=== PATIENT | male | born 1995 | race Caucasian/White ===

== ENCOUNTER 2019-02-24 01:52 | Emergency (ER) | payer SELFPAY ==
[~2019-02-24] VITALS: Ht 182.9 cm; Wt 81.6 kg
[~2019-02-24 01:52] MED LIST: ALBU17AE23 IH; ALBU17AE3 IH; ARPZ10T PO; FLT11013 IH; LORA10TA7 PO; PRD20T PO; RISP0.5T2 PO
--- OUTSIDE RECORDS SUMMARY | 2019-02-24 01:59 | XMS REPORT | CCD ---
Author HILDA Haskins Unknown Address [address] [facility] [address] [place], [place] [id number] Care Team Providers Care Associate Embalmer/Funeral Director Name Role Phone BETH GOZNALEZ MD Attphys BETH GONZALEZ MD Prisurg Vital Signs Unknown or Not Available. Allergies Allergy Code Allergy Type Reaction Status No Known Drug Allergies 0 No known drug allergies Active Procedures Unknown or Not Available. History of Immunizations Immunization Code Date MMR 02/19/1997 MMR 12/03/2000 Hep B, adolescent or pediatric 1995 Hep B, adolescent or pediatric 04/04/1996 Hep B, adolescent or pediatric 08 02/19/1997 IPV 10 04/04/1996 IPV 10 05/05/1996 IPV 10 02/19/1997 IPV 10 12/03/2000 influenza, split (incl. purified surface antigen) 15 07/09/2009 Hib, unspecified formulation 17 03/08/1996 DTaP 20 04/04/1996 DTaP 20 05/05/1996 DTaP 20 02/19/1997 DTaP 20 09/04/1997 DTaP 20 12/03/2000 varicella 21 09/04/1997 varicella 21 04/28/2007 varicella 21 04/26/2009 HPV, quadrivalent 62 09/28/2013 Hep A, ped/adol, 2 dose 83 04/28/2007 Hep A, ped/adol, 2 dose 83 05/11/2008 Hep A, ped/adol, 2 dose 83 04/26/2009 Hep A, ped/adol, 2 dose 83 11/26/2010 influenza, live, intranasal 111 07/11/2008 meningococcal MCV4P 114 05/11/2008 meningococcal MCV4P 114 10/12/2008 meningococcal MCV4P 114 04/26/2009 Tdap 115 05/11/2008 Tdap 115 04/26/2009 Tdap 115 11/26/2010 Influenza, seasonal, injectable, preservative free 140 07/25/2013 Problems Problem Code Start Date Resolved Date Status Lacerated tendon 834714433 04/02/2015 Active Results Unknown or Not Available. Active Medications Unknown or Not Available. Medications Administered During Visit Unknown or Not Available. Encounters Encounter Diagnosis Diagnosis Code Start Date Stimulant abuse [id number] 04/18/2016 Social History Smoking Status Code Start Date End Date Current some day smoker [id number] Patient Decision Aids Unknown or Not Available. Discharge Instructions You were admitted to [facility] on 04/18/2016 03:34 with a principal diagnosis of Other stimulant abuse, uncomplicated You were discharged from [facility] on 04/18/2016 04:01 Should you have any questions prior to discharge, please contact a member of your healthcare team. If you have left the hospital and have any questions, please contact your primary care physician. Chief Complaint and Reason For Visit Chief Complaint Date of Onset SWALLOWED DRUGS Function Status Description Code Date Type Status No Impairments [id number] 06/17/2015 Functional Active Referral/Transition of Care Unknown or Not Available.
--- OUTSIDE RECORDS SUMMARY | 2019-02-24 01:59 | XMS REPORT | CCD ---
Author HILDA Haskins Unknown Address [address] [facility] [address] [place], [place] [id number] Care Team Providers Care Motor Vehicle Assembler Name Role Phone BETH GONZALEZ MD Attphys BETH GONZALEZ MD Prisurg Vital [...] Start Date Resolved Date Status Lacerated tendon [id number] 04/02/2015 Active Results Unknown or Not Available. Active Medications Unknown or Not Available. Medications Administered During Visit Unknown or Not Available. Encounters Encounter Diagnosis Diagnosis Code Start Date Abrasion of hand 256658463 04/18/2016 Social History Smoking Status Code Start Date End Date Current some day smoker [id number] Patient Decision Aids Unknown or Not Available. Discharge Instructions You were admitted to [facility] on 04/18/2016 02:44 with a principal diagnosis of Abrasion of right hand, initial encounter You were discharged from [facility] on 04/18/2016 03:19 Should you have any questions prior to discharge, please contact a member of your healthcare team. If you have left the hospital and have any questions, please contact your primary care physician. Chief Complaint and Reason For Visit Chief Complaint Date of Onset WRIST PAIN Function Status Description Code Date Type Status No Impairments [id number] 06/17/2015 Functional Active Plan of Care Care Plan Entries Problem: Lacerated tendon [SNOMED: 428218650] Goal: Pain control management [SNOMED: 196573877] Instructions: take prn pain meds as needed, and prescribed by physician. Referral/Transition of Care Unknown or Not Available.
--- OUTSIDE RECORDS SUMMARY | 2019-02-24 01:59 | XMS REPORT | CCD ---
Author HILDA Haskins Unknown Address [address] [facility] [address] [place], [place] [id number] Care Team Providers Care Orthopedics Nurse Name Role Phone BETH GONZALEZ MD Attphys [...] Start Date Resolved Date Status Lacerated tendon 685071515 04/02/2015 Active Results Unknown or Not Available. Active Medications Unknown or Not Available. Medications Administered During Visit Unknown or Not Available. Encounters Encounter Diagnosis Diagnosis Code Start Date Stimulant abuse 601921112 04/18/2016 Social History Smoking Status Code Start Date End Date Current some day smoker [id number] Patient Decision Aids Unknown or Not Available. Discharge Instructions You were admitted to [facility] on 04/18/2016 03:34 with a principal diagnosis of Other stimulant abuse, uncomplicated You were discharged from [facility] on 04/18/2016 04:01 Should you have any questions prior to discharge, please contact a member of your healthcare team. If you have left the hospital and have any questions, please contact your primary care physician. Chief Complaint and Reason For Visit Chief Complaint Date of Onset SWALLOWED DRUGS Function Status Description Code Date Type Status No Impairments [id number] 06/17/2015 Functional Active Referral/Transition of Care Unknown or Not Available.
--- OUTSIDE RECORDS SUMMARY | 2019-02-24 01:59 | XMS REPORT ---
Author Author STEPHANY CARSON Organization [employer] Address Unknown Phone Unavailable Care Team Providers Care Biomechanical Engineer Name Role Phone STEPHANY CARSON CP Unavailable Allergies No Known Allergies Problems Problem Type Condition Code Onset Dates Condition Status Assessment Groin abscess L02.214 Active Assessment Rash R21 Active Assessment Rhinitis, allergic J30.9 Active Medications Medication Code System Code Instructions Start Date End Date Status Dosage Hydrocortisone [facility] [address]-79 1 % Externally Twice a day December 31, 2015 1 application to affected area Claritin [facility] [address]-31 10 MG Orally Once a day December 31, 2015 January 30, 2016 1 tablet Clindamycin HCl [facility] [address]-67 150 MG Orally 4 times a day December 31, 2015 January 10, 2016 2 capsules Procedures Procedure Coding System Code Date Office Visit, Est Pt., Level 2 CPT-4 70879 December 31, 2015 Vital Signs Date/Time: December 31, 2015 Cardiac Monitoring Heart Rate 68 bpm Weight 174 lbs Height 71 in BMI 24.27 Index Blood Pressure Diastolic 68 mmHg Blood Pressure Systolic 110 mmHg Results No Known Results Summary Purpose [employer] Submission
--- OUTSIDE RECORDS SUMMARY | 2019-02-24 01:59 | XMS REPORT ---
Author Author SHAMAR MYERS [facility] Address Unknown Care Team Providers Care Crm Solution Architect Name Role Phone SHAMAR MYERS Unavailable PROBLEMS Unknown Problems ALLERGIES No Known Allergies SOCIAL HISTORY Never Assessed PLAN OF CARE Activity Details Follow Up prn Reason:prn VITAL SIGNS Height 71 in 2017-01-13 Blood pressure systolic 151 mmHg 2017-01-13 Blood pressure diastolic 93 mmHg 2017-01-13 MEDICATIONS No Known Medications RESULTS No Results PROCEDURES Procedure Date Ordered Result Body Site LTD ORAL EVALUATION - PROBLEM FOCUS January 13, 2017 INTRAORL-PERIAPICAL 1 FILM [id number] January 13, 2017 INTRAORL-PERIAPICAL EA ADD FILM January 13, 2017 IMMUNIZATIONS No Known Immunizations MEDICAL (GENERAL) HISTORY Type Description Date Surgical History main artery and tendon repair Rt wrist Surgical History tonsillectomy and adenoidectomy Hospitalization History surgeries
--- NOTE | 2019-02-24 02:12 | ED Integumentary General ---
General Chief Complaint: Skin/Wound Problems Stated Complaint: LEFT BIG TOE LAC Source: patient, other Exam Limitations: no limitations History of Present Illness Date Seen by Provider: Feb 24, 2019 Time Seen by Provider: 01:57 Initial Comments Patient presents to ER by private conveyance with his significant other chief complaint of just prior to arrival he tripped and fell stubbing his toe into a mirror which broke and caused a laceration of the end of his great toe of his left foot. He wrapped it up and a bandanna. He is up-to-date on his tetanus shot in the last couple years. Pain is not significant at this time. Does not take any medicines nor have any significant medical history. Allergies and Home Medications Allergies Coded Allergies: No Known Drug Allergies (Unverified , 02/28/12) Home Medications Albuterol 17 Gm Inh, 1-2 PUFF IH Q4H PRN Prescribed by: JESSICA SHAH on 02/29/12 0019 Aripiprazole 10 Mg Tab, 1 TAB PO BID, (Reported) DAILY Loratadine 10 Mg Tablet, 10 MG PO DAILY, (Reported) Prednisone 20 Mg Tab, 20 MG PO BID Prescribed by: JESSICA SHAH on 02/29/12 0019 Risperidone 0.5 Mg Tablet, 0.5 MG PO HS, (Reported) Patient Home Medication List Home Medication List Reviewed: Yes Review of Systems Review of Systems Constitutional: No chills, No fever EENTM: No ear discharge, No hearing loss, No blurred vision Respiratory: No cough, No phlegm, No short of breath Cardiovascular: No chest pain, No edema Gastrointestinal: No abdominal pain, No constipation, No nausea Past Ajduibc-Huvnpn-Cdyvcg Hx Patient Social History Smoking Status: Current Everyday Smoker Type Used: Cigarettes Recent Foreign Travel: No Contact w/Someone Who Travel: No Physical Exam Vital Signs Capillary Refill : General Appearance: WD/WN, mild distress Neck: full range of motion, normal inspection Cardiovascular: normal peripheral pulses, regular rate, rhythm Respiratory: no respiratory distress, no accessory muscle use Neurologic/Psychiatric: no motor/sensory deficits, alert, normal mood/affect, oriented x 3 Skin: other (3.5 cm linear laceration left foot great toe) Procedures/Interventions Wound Location: Lower Extremities Other Wound Location Left foot great toe anterior distal phalangeal Wound Length (cm): 3.5 Wound's Depth, Shape: linear, sub Q Wound Explored: no foreign body removed Irrigated w/ Saline (ccs): 100 Betadine Prep?: Yes (and chlorhexidine sterile saline) Anesthesia: 1% Lidocaine Volume Anesthetic (ccs): 4 Wound Debrided: minimal Suture: Prolene Suture Size: 4-0 Number of Sutures: 6 Sterile Dressing Applied?: Yes Progress Patient's wound was cleaned with chlorhexidine and sterile saline and then soaked in Betadine. We then did a digital block of the great toe left foot in the usual fashion using 2 cc of 1% lidocaine without epinephrine bilaterally. When his toe was ascertained to be numb we did a very thorough job of cleaning out the wound with the chlorhexidine and sterile saline and then soaked again in Betadine. Using the usual sterile fashion way reapproximated the skin edges using 6 simple interrupted sutures made of 4-0 Prolene. The patient tolerated the procedure very well. Triple antibiotic ointment was applied over the sutures and then gauze. Progress/Results/Core Measures Results/Orders My Orders Orders - BAN TORRES Lidocaine 1% Inj 20 Ml (Xylocaine 1% Inj (02/24/19 02:15) Departure Impression Primary Impression: Laceration of left great toe w/o foreign body w/o damage to nail Qualified Codes: S91.112A - Laceration without foreign body of left great toe without damage to nail, initial encounter Disposition: 01 HOME, SELF-CARE Condition: Improved Departure-Patient Inst. Decision time for Depature: 02:35 Referrals: NO,LOCAL PHYSICIAN (PCP/Family) Primary Care Physician Patient Instructions: Laceration Repair With Stitches (DC) Add. Discharge Instructions: Keep the wound clean with regular soap and water only. You can apply Vaseline over the sutures and then some gauze dressing to be changed every time it becomes soiled or at least daily. Return to the ER or your primary care doctor in 10 days to have the sutures removed. Take the Bactrim one tablet twice a day with food for the next 5 days to prevent infection. If you start to have fevers, chills, vomiting or other worrisome symptoms then return to the ER. If you have increased swelling or pain use Tylenol 1000 mg every 8 hours in addition to ibuprofen 800 mg every 8 hours and elevate the foot above the level of your heart. All discharge instructions reviewed with patient and/or family. Voiced understanding. Scripts Sulfamethoxazole/Trimethoprim (Bactrim Ds Tablet) 1 Each Tablet 1 EACH PO BID WITH MEALS for 5 Days, #10 TAB 0 Refills Prov: BAN TORRES 02/24/19 BAN TORRES Feb 24, 2019 02:12
[2019-02-24] MEDS ORDERED: LIDOCAINE 1% INJ 20 ML 20 ML VIAL INJ ONE (02:15)
[2019-02-24] MEDS ORDERED: TRIM/SULFAMETH 160/800 (SEPTRA DS) TAB PO ONE ×2 (02:32→02:45)
--- NOTE | 2019-02-24 02:34 | NUR ---
X6 sutures placed, by Dr. Collins, to lt great toe.
[2019-02-24] MEDS ORDERED: SULF1TAB35 PO (02:37)
[2019-02-24 02:41] VITALS: BP 131/92
== END 2019-02-24 02:42 | disposition home or self-care (01) ==
LOC: EDUNIT# 01:52 → ER 01:55
DX: S91.212A Laceration without foreign body of left great toe with damage to nail, initial encounter (principal); F17.210 Nicotine dependence, cigarettes, uncomplicated; Z79.52 Long term (current) use of systemic steroids; W01.198A Fall on same level from slipping, tripping and stumbling with subsequent striking against other object, initial encounter; W25.XXXA Contact with sharp glass, initial encounter
CPT/HCPCS: 12002; 64450